=== PATIENT | male | born 1950 | race Caucasian/White ===

== ENCOUNTER 2023-08-01 00:11 | Outpatient (RCR) | payer MEDICARE, SELFPAY ==
[2023-07-17] MEDS: Normal Saline Flush 10 ML SYR IVP (15:46)
[2023-08-01] MEDS: Normal Saline Flush 10 ML SYR IVP (12:15)
== END 2023-08-06 23:59 | disposition home or self-care (01) ==
LOC: INF 00:11
PROVIDERS: PCP Family Medicine; Visit Provider Internal Medicine Hematology & Oncology
DX: Z45.2 Encounter for adjustment and management of vascular access device (principal)
CPT/HCPCS: 87493; 96523

== ENCOUNTER 2023-08-29 01:47 | Outpatient (RCR) | payer MEDICARE, SELFPAY ==
[2023-08-29] MEDS: Normal Saline Flush 10 ML SYR IVP (13:06)
== END 2023-09-05 23:59 | disposition home or self-care (01) ==
LOC: INF 01:47
PROVIDERS: PCP Family Medicine; Visit Provider Internal Medicine Hematology & Oncology
DX: Z45.2 Encounter for adjustment and management of vascular access device (principal)
CPT/HCPCS: 96523

== ENCOUNTER 2023-09-26 00:11 | Outpatient (RCR) | payer MEDICARE, SELFPAY ==
[2023-09-12] MEDS: Normal Saline Flush 10 ML SYR IVP (13:01)
[2023-09-26] MEDS: Normal Saline Flush 10 ML SYR IVP (12:13)
== END 2023-10-06 23:59 | disposition home or self-care (01) ==
LOC: INF 00:11
PROVIDERS: PCP Family Medicine; Visit Provider Internal Medicine Hematology & Oncology
DX: C16.0 Malignant neoplasm of cardia (principal)
CPT/HCPCS: 96372; 96523; Q5108

== ENCOUNTER 2023-10-12 08:58 | Outpatient (RCR) | payer MEDICARE, SELFPAY | END 2023-11-06 23:59 | disposition home or self-care (01) | LOC: INF 08:58 | PROVIDERS: PCP Family Medicine; Visit Provider Internal Medicine Hematology & Oncology | DX: Z45.2 Encounter for adjustment and management of vascular access device (principal) | CPT/HCPCS: 96523 ==